=== PATIENT | female | born 1990 | race Caucasian/White ===

== ENCOUNTER 2019-09-21 19:56 | Emergency (ER) | payer OTHER, SELFPAY ==
--- NOTE | ~2019-09-21 | XR_ITS ---
EXAMINATION: XR chest 2V 09/21/2019 20:17 INDICATION: Left sided chest pain PROCEDURE: 2 view chest COMPARISON: No prior studies for comparison. FINDINGS: The lungs are clear. The cardiomediastinal silhouette is within normal limits. There are no pleural effusions. There is no pneumothorax suspected. IMPRESSION: 1: NO ACUTE CARDIOPULMONARY DISEASE. Reviewed, dictated and finalized at location A. ER REPAIR
--- NOTE | 2019-09-21 20:00 | ECG_ITS ---
Measurements Intervals [place] Rate: 79 P: -15 WI: 166 QRS: 22 QRSD: 96 T: 9 QT: 372 QTc: 428 Interpretive Statements SINUS RHYTHM WITH INTERMITTENT ECTOPIC ATRIAL RHYTHM INCOMPLETE RIGHT BUNDLE BRANCH BLOCK BORDERLINE ECG Electronically Signed On 09-22-2019 7:08:14 [employer]UCATION [employer] SALES REPRESENTATIVE by Manuel Rogers D.O.
[2019-09-21 20:03] VITALS: BP 143/89; PULSE 87; RESP 17; TEMP 37.4; O2SAT 100
[2019-09-21 20:19] LABS: Basophils Percent Auto 0.4 % (0.2-1.2); Eosinophils Absolute Auto 0.2 K/mm3 (0-0.3); Eosinophils Percent Auto 2.5 % (0-4.4); Hematocrit 41.4 % (37.0-47.0); Hemoglobin 13.2 g/dL (12.0-15.0); Immature Granulocyte Absolute 0.02 K/mm3 (0.00-0.031); Immature Granulocyte Percent A 0.2 % (0-0.5); Lymphocytes Percent Auto 25.7 % (18.3-44.2); Mean Corpuscular HGB Conc 31.9 g/dl (32-36); Mean Corpuscular Hemoglobin 27.6 pg (26-34); Mean Corpuscular Volume 86.4 fl (80-100); Monocytes Absolute Auto 0.6 K/mm3 (0.1-0.6); Monocytes Percent Auto 6.2 % (2.6-8.5); Neutrophils Absolute Auto 6.3 K/mm3 (1.3-6.7); Platelet Count Result 267 k/mm3 (150-375); Red Blood Count 4.79 M/mm3 (4.2-5.4); Red Cell Distribution Width 13.5 % (11.5-14.5); White Blood Count 9.7 K/mm3 (4.5-10.0)
[2019-09-21 20:34] LABS: Blood Urea Nitrogen 15 mg/dL (7-17); Calcium 9.5 mg/dL (8.4-10.2); Carbon Dioxide 25 mmol/L (22-30); Chloride 103 mmol/L (98-107); Estimated CRCL calculation 110 ml/min; Estimated Glomerular Filt Rate > 60; Glucose 102 mg/dL (65-105); Sodium 138 mmol/L (137-145)
[2019-09-21 20:36] VITALS: PULSE 85
--- NOTE | 2019-09-21 20:41 | ED.CHESTPAIN ---
HPI - Chest Pain General Chief Complaint: Chest Pain Stated Complaint: chest pain Time Seen by Provider: 09/21/19 20:36 Source: patient and RN notes reviewed Mode of arrival: ambulatory Limitations: no limitations History of Present Illness HPI narrative: A 28 y/o female presents to the ED with intermittent, sharp, lt CP for the past month. She states that she was seen by her PCP 2 weeks ago and had a CXR and EKG, both of which were normal. She reports that they told her that it was probably just inflammation, but since it hasn't gotten any better she decided to come to the ED to be evaluated. She notes some associated LUE tightness. She denies anything aggravating or alleviating her pain. She also denies any edema, calf tenderness, fevers, chills, sweats, SOB, N/V/D, ABD pain, and any other medical complaints at this time. MD complaint: chest pain Onset (ago): month(s) (1) Timing of current episode: episodic Pain location: left chest Quality: sharp Relieving factors: nothing Exacerbating factors: nothing Associated symptoms: other (LUE tightness) Related Data Allergies Allergy/AdvReac Type Severity Reaction Status Date / Time Penicillins Allergy Unknown Rash Verified 09/21/19 20:02 Review of Systems Review of Systems: All systems reviewed & are unremarkable except as noted in HPI and below Constitutional: Constitutional: Denies chills, Denies fatigue, Denies fever(s), Denies headache(s) and Denies night sweats Eyes: Eyes: Denies change in vision, Denies loss of vision and Denies other visual disturbances ENT: Denies headache(s), Denies hoarseness, Denies epistaxis, Denies nasal congestion and Denies sore throat Cardiovascular: Cardiovascular: Reports chest pain (lt), Denies leg edema, Denies palpitations and Denies dyspnea Respiratory: Respiratory: Denies cough, Denies dyspnea and Denies wheezing Gastrointestinal: Gastrointestinal: Denies abdominal pain, Denies diarrhea, Denies nausea, Denies vomiting and Denies other (calf tenderness) Genitourinary: Genitourinary: Denies hematuria, Denies urinary frequency and Denies dysuria Musculoskeletal: Musculoskeletal: Denies abnormal gait, Denies deformity, Denies joint swelling, Denies muscle weakness, Denies numbness and Reports other (LUE tightness) Integumentary/Breasts: Skin/Breast: Denies rash, Denies unusual bruising and Denies wounds Neurologic: Denies abnormal gait, Denies headache(s), Denies focal weakness, Denies loss of vision and Denies numbness Psychiatric: Psychiatric: Reports no additional psychiatric complaints Endocrine: Endocrine: Denies fatigue and Denies palpitations Hematologic/Lymphatic: Hematologic/Lymphatic: Denies easy bleeding and Denies easy bruising Allergic/Immunologic: Allergic/Immunologic: Denies wheezing PMFSH Past Medical History Medical History (Updated 09/22/19 @ 00:57 by Jag Abdi MD) Healthy female Surgical History Surgical History (Updated 09/21/19 @ 21:23 by Sergey Milner) Hx of eye surgery Family History Family History Mother Family history of obesity Hypertension Social History Social History Smoking status: Never smoker Alcohol intake: current Comments PCP: Dr. Chacon. Exam Const: General: healthy appearing, no acute distress and well developed Nutritional Appearance: well nourished Orientation/consciousness: patient oriented x3 (alert) and Other orientation findings (Alert) Limitations: no limitations HENMT: Head: normocephalic and atraumatic Ears: external ears normal General nose exam: No nasal discharge present and no epistaxis Face and sinus: face symmetric Mouth: Yes lip normal, Yes tongue normal and Yes moist mucous membranes Throat: other (No exudate, no erythema) Eyes: Conjunctivae: conjunctivae normal Sclera: sclerae normal EOM: EOMs intact bilaterally Neck: Neck: full ROM, no lymphadenopathy and
[2019-09-21 20:44] LABS: INR 0.9; Partial Thromboplastin Time 27.4 SECONDS (22.3-36.8); Prothrombin Time 12.2 Seconds (11.1-14.7)
[2019-09-21 20:46] VITALS: BP 132/59; PULSE 86; RESP 14; O2SAT 98
[2019-09-21 20:46] LABS: Troponin I < 0.012 ng/mL (0.000-0.034)
[2019-09-21 22:02] LABS: D Dimer 0.27 ug/mL (<0.48)
[2019-09-21 23:06] VITALS: BP 131/74; PULSE 76; RESP 18; O2SAT 99
[2019-09-21 23:30] LABS: Troponin I < 0.012 ng/mL (0.000-0.034)
[2019-09-22 00:34] VITALS: BP 106/61; PULSE 67; RESP 16; O2SAT 99
[2019-09-22 01:00] VITALS: BP 102/64; PULSE 70; RESP 18; TEMP 36.4; O2SAT 100
== END 2019-09-22 01:00 | disposition home or self-care (01) ==
PROVIDERS: Emergency Provider Emergency Medicine; PCP Family Medicine
DX: R07.89 Other chest pain (principal); I45.10 Unspecified right bundle-branch block
CPT/HCPCS: 36415; 71046; 80048; 84484; 85025; 85380; 85610; 85730; 93005; 99284

== ENCOUNTER 2022-11-09 08:56 | Emergency (ER) | payer OTHER, SELFPAY ==
[2022-11-09 09:15] VITALS: BP 131/81; PULSE 84; RESP 16; TEMP 36.8; O2SAT 99
--- NOTE | 2022-11-09 09:55 | ED.URI ---
HPI - URI/Sore Throat General Chief Complaint: Upper Respiratory Infection Stated Complaint: SORE THROAT/HEADACHE/DIARRHEA/STUFFY NOSE Time Seen by Provider: 11/09/22 09:56 Source: patient and RN notes reviewed Mode of arrival: ambulatory Limitations: no limitations History of Present Illness HPI Narrative: 32-year-old female presented for complaint of sore throat, nasal congestion and drainage over the last 4 days. Endorses voice is hoarse. She denies shortness of breath, wheezing, cough, nausea, vomiting, diarrhea, fevers or chills. She took 1 dose of Advil cold and Sinus yesterday. Denies sick contacts. MD elicited complaint: cough Related Data Home Medications Medication Instructions Recorded Confirmed No Home Medications 11/09/22 11/09/22 Allergies Allergy/AdvReac Type Severity Reaction Status Date / Time Penicillins Allergy Unknown Rash Verified 11/09/22 09:49 Review of Systems Review of Systems: CONSTITUTIONAL: Denies malaise, chills, sweats, fever EYES: Denies visual changes, redness, or discharge ENT: Reports rhinorrhea, congestion, sinus pain, sore throat CARDIOVASCULAR: Denies chest pain, palpitations, edema RESPIRATORY: Reports cough, post nasal drainage. Denies dyspnea GASTROINTESTINAL: Denies abdominal pain, nausea, vomiting, diarrhea SKIN: Denies rash or itching MUSCULOSKELETAL: Denies myalgia NEUROLOGIC: Denies headache PMFSH Past Medical History Medical History (Updated 11/09/22 @ 10:03 by Omaira Mcknight APRN) Healthy female No pertinent past medical history Surgical History Surgical History Hx of eye surgery Family History Family History Mother Family history of obesity Hypertension Social History Social History Smoking status: Never smoker Alcohol intake: current Exam Narrative: GENERAL: Mildly ill-appearing, nontoxic EYES: PERRLA, conjunctivae clear ENT: Mucous membranes moist. Nasal congestion. tMs pearly bernstein with dull light reflex bilaterally; no tragal tenderness. Oropharynx mildly erythematous without tonsillar swelling, lesions or exudate, no drooling, no trismus, uvula midline. No tripod positioning, muffled voice, soft palate or pharyngeal wall bulging NECK: Supple. No lymphadenopathy CHEST: Clear to auscultation, breath sounds equal. No wheezing, rhonchi, rales, or stridor. No respiratory distress, speaks in full sentences. HEART: Regular rate and rhythm. No murmur heard. SKIN: Warm, dry, no rash. NEURO: Alert and oriented x3. PSYCH: Normal mood and affect Course Course Emergency Course: Patient is aware of diagnosis, understands and agrees to treatment plan. Anticipatory guidance given. Patient agrees to follow-up as directed and is aware of reasons to seek care at the emergency department. Portions of this record may have been created with voice recognition software Level of Care: Express Care Visit Vital Signs Vital signs: Vital Signs Temperature 98.3 F 11/09/22 09:15 Pulse Rate 84 11/09/22 09:15 Respiratory Rate 16 11/09/22 09:15 Blood Pressure 131/81 11/09/22 09:15 Pulse Oximetry 99 11/09/22 09:15 Temperature 98.3 F 11/09/22 09:15 Pulse Rate 84 11/09/22 09:15 Respiratory Rate 16 11/09/22 09:15 Blood Pressure 131/81 11/09/22 09:15 Pulse Oximetry 99 11/09/22 09:15 reviewed MDM - URI/Sore Throat MDM Narrative Medical decision making narrative: Negative strep test reviewed with patient. Advised supportive measures and signs/symptoms to go to the ER. Pt is appropriate for outpt treatment and f/u. Differential Diagnosis Differential diagnosis: Likely upper respiratory infection, otitis media, sinusitis, viral infection, influenza and pharyngitis Lab Data Labs: Strep Screen Presumptive Negative
== END 2022-11-09 10:07 | disposition home or self-care (01) ==
PROVIDERS: Emergency Provider Nurse Practitioner Family
DX: J06.9 Acute upper respiratory infection, unspecified (principal)
CPT/HCPCS: 87081; 87880; 99203; G0463

== ENCOUNTER 2023-07-12 08:19 | Emergency (ER) | payer OTHER, SELFPAY ==
[2023-07-12 08:30] VITALS: BP 136/89; PULSE 73; RESP 16; TEMP 36.7; O2SAT 100
--- NOTE | 2023-07-12 08:42 | ED.FEMALEGU ---
HPI - Female Genitourinary General Chief complaint: Urogenital-Female Stated complaint: UTI SYMPTOMS Source: patient and RN notes reviewed Mode of arrival: ambulatory Limitations: no limitations History of Present Illness HPI Narrative: 32-year-old female presented for complaint of burning with urination and frequency over the past 4 days. Endorses occasional lower abdominal pressure and states she saw some blood in the urine this morning. She denies abdominal pain, flank pain, nausea, vomiting, diarrhea, fevers or chills. Related Data Home Medications Medication Instructions Recorded Confirmed levonorgestrel 21 mcg/24 hours (8 1 device intrauterine ONCE 07/12/23 07/12/23 yrs) 52 mg intrauterine device (Mirena) Allergies Allergy/AdvReac Type Severity Reaction Status Date / Time Penicillins Allergy Unknown Rash Verified 07/12/23 08:30 Review of Systems Review of Systems: CONSTITUTIONAL: Denies body aches, fever, chills, or sweats. CARDIOVASCULAR: Denies chest pain, palpitations, or edema. RESPIRATORY: Denies cough or dyspnea. GASTROINTESTINAL: Denies abdominal pain, nausea, vomiting, or diarrhea. GENITOURINARY: Reports dysuria, frequency, urgency, hematuria, denies flank pain SKIN: Denies rash, itching, or wounds. MUSCULOSKELETAL: Denies back pain or myalgia. [facility] Past Medical History Medical History Healthy female No pertinent past medical history Surgical History Surgical History Hx of eye surgery Family History Family History Mother Family history of obesity Hypertension Social History Social History Smoking status: Never smoker Alcohol intake: current Comments At time of signature, I have reviewed and agree with nursing past medical, surgical, social and family history unless otherwise noted. Please see nursing chart for further information. There is no relevant family history pertinent to the presenting complaint Exam Narrative: GENERAL: Well-appearing and in no acute distress. ENT: Mucous membranes pink and moist. NECK: Normal AROM. Supple. CHEST: No respiratory distress. Clear to auscultation. HEART: Regular rate and rhythm. ABDOMEN: Soft, nontender, nondistended, normal active bowel sounds. No CVA tenderness MUSCULOSKELETAL: No bony tenderness. SKIN: Warm, dry, no rash. NEURO: No focal deficits. Alert and oriented x3. Gait steady. PSYCH: Normal affect. Course Course Emergency Course: Patient is aware of diagnosis, understands and agrees to treatment plan. Anticipatory guidance given. Patient agrees to follow-up as directed and is aware of reasons to seek care at the emergency department. Portions of this record may have been created with voice recognition software Level of Care: Express Care Visit Vital Signs Vital signs: Vital Signs Temperature 98.1 F 07/12/23 08:30 Pulse Rate 73 07/12/23 08:30 Respiratory Rate 16 07/12/23 08:30 Blood Pressure 136/89 07/12/23 08:30 Pulse Oximetry 100 07/12/23 08:30 Temperature 98.1 F 07/12/23 08:30 Pulse Rate 73 07/12/23 08:30 Respiratory Rate 16 07/12/23 08:30 Blood Pressure 136/89 07/12/23 08:30 Pulse Oximetry 100 07/12/23 08:30 Reviewed MDM - Female Genitourinary MDM Narrative Medical decision making narrative: Discussed results of urine. Advised supportive measures and signs/symptoms to go to the ER. Pt is appropriate for outpt treatment and f/u. Differential Diagnosis Differential diagnosis: Likely urinary tract infection, bacterial vaginosis and cystitis Lab Data Labs: Urine Glucose Negative Reference Range: Negative Urine Bilirubin Negative
== END 2023-07-12 08:52 | disposition home or self-care (01) ==
PROVIDERS: Emergency Provider Nurse Practitioner Family
DX: N39.0 Urinary tract infection, site not specified (principal); B95.7 Other staphylococcus as the cause of diseases classified elsewhere
CPT/HCPCS: 81003; 87077; 87086; 87088; 99213; G0463

== ENCOUNTER 2023-07-21 09:47 | Emergency (ER) | payer OTHER, SELFPAY ==
[2023-07-21 10:10] VITALS: BP 130/83; PULSE 63; RESP 16; TEMP 36.8; O2SAT 99
--- NOTE | 2023-07-21 10:44 | ED.URI ---
HPI - URI/Sore Throat General Chief Complaint: Upper Respiratory Infection Stated Complaint: Strep symptoms Time Seen by Provider: 07/21/23 10:40 Source: patient, RN notes reviewed and old records reviewed Mode of arrival: ambulatory Limitations: no limitations History of Present Illness HPI Narrative: 32-year-old female presents to [facility] complaints of sore throat for the past 2 days with no known fevers. Patient reports that she has some burning pain to her throat rates pain 3/10. Patient denies any cough, ear pain or any headache. Patient reports no known ill contacts. MD elicited complaint: cough and sore throat Onset (ago): day(s) (2) Pain scale (0-10): 3 Treatments prior to arrival: acetaminophen Related Data Home Medications Medication Instructions Recorded Confirmed levonorgestrel 21 mcg/24 hours (8 1 device intrauterine ONCE 07/12/23 07/12/23 yrs) 52 mg intrauterine device (Mirena) Allergies Allergy/AdvReac Type Severity Reaction Status Date / Time Penicillins Allergy Unknown Rash Verified 07/12/23 08:30 Review of Systems Review of Systems: CONSTITUTIONAL: Denies malaise, chills, sweats, or fever. EYES: Denies visual changes, redness, or discharge. ENT: Reports rhinorrhea, congestion, no sinus pain, no otalgia andpositive for sore throat. CARDIOVASCULAR: Denies chest pain, palpitations, or edema. RESPIRATORY: Reports no cough.? Denies dyspnea. GASTROINTESTINAL: Denies abdominal pain, nausea, vomiting, diarrhea SKIN: Denies rash or itching. MUSCULOSKELETAL: Denies myalgia. NEUROLOGIC: Denies headache. All systems reviewed & are unremarkable except as noted in HPI and below PMFSH Past Medical History Medical History Healthy female No pertinent past medical history Surgical History Surgical History Hx of eye surgery Family History Family History Mother Family history of obesity Hypertension Social History Social History Smoking status: Never smoker Alcohol intake: current Comments At time of signature, agree with nursing past medical, surgical, social and family history. There is no relevant family history pertinent to the presenting complaint Exam Narrative: GENERAL: Well-appearing, well-nourished, and in no acute distress. HEAD: Normocephalic EYES: PERRLA, conjunctivae clear ENT: Nares clear, turbinates edematous and erythematous, clear discharge. Mucous membranes moist. TM pearly bernstein with dull light reflex bilaterally; no tragal tenderness. Oropharynx erythematous without lesions. Tonsils enlarged and with white exudate, no drooling, no hoarseness, no trismus, uvula midline.post nasal drainage noted NECK: Supple. lymphadenopathy CHEST: Clear to auscultation, breath sounds equal. No wheezing, rhonchi, rales, or stridor. No respiratory distress, speaks in full sentences.SAO2 99% on room air HEART: Regular rate and rhythm. No murmur heard. SKIN: Warm, dry, no rash. NEURO: Alert and oriented x3. PSYCH: Normal mood and affect Course Course Emergency Course: Patient is aware of diagnosis, understands and agrees to treatment plan.? Anticipatory guidance given.? Patient agrees to follow-up as directed and is aware of reasons to seek care at the emergency department. Portions of this record may have been created with voice recognition software Level of Care: Express Care Visit Vital Signs Vital signs: Vital Signs Temperature 36.8 C 07/21/23 10:10 Pulse Rate 63 07/21/23 10:10 Respiratory Rate 16 07/21/23 10:10 Blood Pressure 130/83 07/21/23 10:10 Pulse Oximetry 99 07/21/23 10:10 Temperature 36.8 C 07/21/23 10:10 Pulse Rate 63 07/21/23 10:10 Respiratory Rate 16 07/21/23 10:10 Blood
== END 2023-07-21 11:04 | disposition home or self-care (01) ==
PROVIDERS: Emergency Provider Registered Nurse
DX: J03.90 Acute tonsillitis, unspecified (principal)
CPT/HCPCS: 87081; 87880; 99213; G0463

== ENCOUNTER 2023-12-21 18:39 | Emergency (ER) | payer OTHER, SELFPAY ==
--- NOTE | 2023-12-21 18:42 | ED.GENADULT ---
HPI - General Adult General Chief complaint: Upper Respiratory Infection Stated complaint: Sore Throat Time Seen by Provider: 12/21/23 18:42 Source: patient Mode of arrival: ambulatory Limitations: no limitations History of Present Illness HPI narrative: 33-year-old female patient presents to [facility] with complaints of sore throat this started yesterday evening. Patient states she has been feeling kind of achy did take some Tylenol yesterday and today. Patient states her son had strep throat earlier in the month. Patient states she has had a little bit of a headache denies any nausea, vomiting or diarrhea. Denies any fevers that she is aware of. Related Data Home Medications Medication Instructions Recorded Confirmed levonorgestrel 21 mcg/24 hours (8 1 device intrauterine ONCE 07/12/23 07/12/23 yrs) 52 mg intrauterine device (Mirena) Allergies Allergy/AdvReac Type Severity Reaction Status Date / Time Penicillins Allergy Unknown Rash Verified 07/12/23 08:30 Review of Systems Review of Systems: CONSTITUTIONAL: Denies fever, chills, or sweats. positive body aches EYES: Denies visual changes, redness, or discharge. ENT: Denies rhinorrhea, congestion, Positive sore throat, or otalgia. CARDIOVASCULAR: Denies chest pain, palpitations, or edema. RESPIRATORY: Denies cough or dyspnea. GASTROINTESTINAL: Denies abdominal pain, nausea, vomiting, or diarrhea. GENITOURINARY: Denies dysuria or hematuria. SKIN: Denies rash or itching. MUSCULOSKELETAL: Denies back pain, joint pain, or myalgia. NEUROLOGIC: positive headache, denies numbness, or weakness. PSYCHIATRIC: Denies anxiety or depression. [facility] Past Medical History Medical History Healthy female No pertinent past medical history Surgical History Surgical History Hx of eye surgery Family History Family History Mother Family history of obesity Hypertension Social History Social History Smoking status: Never smoker Alcohol intake: current Comments At the time of my signature I agree with nursing past medical history, surgical, social, and family history. There is no relevant family history pertinent to the presenting complaint. Exam Narrative: GENERAL: Well-appearing, well-nourished, and in no acute distress. HEAD: Normocephalic, atraumatic. EYES: PERRLA and EOMI. ENT: Nares clear, no rhinorrhea or epistaxis. Mucous membranes moist. posterior pharynx with no erythema, tonsillar enlargement, exudates or lesions present. Bilateral TMs are clear no erythema or foreign bodies the canal. NECK: Supple. No lymphadenopathy CHEST: Clear to auscultation. No respiratory distress. HEART: Regular rate and rhythm. No murmur heard. Normal peripheral pulses. ABDOMEN: Soft, nontender, nondistended, normal active bowel sounds. EXTREMITIES: Normal range of motion. No edema. SKIN: Warm, dry, no rash. NEURO: No focal deficits. Alert and oriented x3. Course Course Level of Care: Express Care Visit Reevaluation(s) Reevaluation #1: Re-evaluated patient after point of care testing was completed notified her that all point of care testing was negative today. Discussed with her to continue to treat with [id number] medication and we will sign her throat swab to the lab for culture. If the culture comes back positive we will call her an antibiotic at th Date: 12/21/23 Time: 19:10 Vital Signs Vital signs: Vital Signs Temperature 37.3 C 12/21/23 18:46 Pulse Rate 88 12/21/23 18:46 Respiratory Rate 16 12/21/23 18:46 Blood Pressure 114/75 12/21/23 18:46 Pulse Oximetry 99 12/21/23 18:46 Temperature 37.3 C 12/21/23 18:46 Pulse Rate 88 12/21/23 18:46 Respiratory Rate 16 12/21/23 18:46 Blood Pressure
[2023-12-21 18:46] VITALS: BP 114/75; PULSE 88; RESP 16; TEMP 37.3; O2SAT 99
== END 2023-12-21 19:11 | disposition home or self-care (01) ==
PROVIDERS: Emergency Provider Nurse Practitioner Family
DX: J02.9 Acute pharyngitis, unspecified (principal); Z20.822 Contact with and (suspected) exposure to COVID-19
CPT/HCPCS: 87081; 87426; 87804; 87880; 99213; G0463

== ENCOUNTER 2025-04-08 12:58 | Emergency (ER) | payer BC, SELFPAY ==
--- OUTSIDE RECORDS SUMMARY | 2025-04-08 13:01 | XMS_ITS | Clinical Summary ---
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 Gender Identity Not on file Sexual Orientation Not on file Plan of Treatment Health Maintenance Due Date Last Done Comments Hepatitis C Virus (HCV) Screening 1989 Hepatitis B Immunization (1 of 3 - 19+ 3-dose series) 2008 Pap Smear 2010 Human Papillomavirus (HPV) Immunization (1 - 3-dose SCDM series) 2016 Cervical Cancer Screening (CCS) 2019 HPV/Cotest 2019 SARS-COV-2 Immunization ( - 2023- season) 2024 04/09/2021, 03/19/2021 Influenza Immunization (#1) 2025 Respiratory Syncytial Virus (RSV) Immunization (Adult) (1 - 1-dose 75+ series) 2064 DTaP/Tdap/Td Immunization Discontinued 12/16/2015 TdaP Immunization Completed 12/16/2015 Meningococcal Immunization (ACWY) Aged Out No longer eligible based on patient's age to complete this topic Pneumococcal Immunization Combined Aged Out No longer eligible based on patient's age to complete this topic Rotavirus Immunization Aged Out No lo nger eligible based on patient's age to complete this topic
--- NOTE | 2025-04-08 13:04 | ED_ITS ---
HPI - Female Genitourinary General Chief complaint: Urogenital-Female Stated complaint: uti Time Seen by Provider: 04/08/25 13:07 Source: patient and RN notes reviewed Mode of arrival: ambulatory Limitations: no limitations History of Present Illness HPI Narrative: 34 y/o female presented for c/o burning with urination and frequency. Onset yesterday. Denies hematuria, nausea, vomiting, abdominal pain, flank pain, constipation, diarrhea, fevers or chills. not taking anything for symptoms. Related Data Home Medications ?Medication ?Instructions ?Recorded ?Confirmed ?Last Taken ?Type levonorgestrel (Mirena) 1 device intrauterine ONCE 07/12/23 07/12/23 Unknown History Allergies Allergy/AdvReac Type Severity Reaction Status Date / Time Penicillins Allergy Unknown Rash Verified 07/12/23 08:30 Review of Systems Review of Systems: CONSTITUTIONAL: Denies body aches, fever, chills, or sweats. CARDIOVASCULAR: Denies chest pain, palpitations, or edema. RESPIRATORY: Denies cough or dyspnea. GASTROINTESTINAL: Denies abdominal pain, nausea, vomiting, or diarrhea. GENITOURINARY: Reports dysuria, frequency,denies urgency, hematuria, flank pain, discharge SKIN: Denies rash, itching, or wounds. MUSCULOSKELETAL: Denies back pain or myalgia. FORMERLY [facility], [facility]–1983 Past Medical History Medical History Healthy female No pertinent past medical history Surgical History Surgical History Hx of eye surgery Family History Family History Mother Family history of obesity Hypertension Social History Social History Smoking status: Never smoker Alcohol intake: current Comments At time of signature, I have reviewed and agree with nursing past medical, surgical, social and family history unless otherwise noted. Please see nursing chart for further information. There is no relevant family history pertinent to the presenting complaint Exam Narrative: GENERAL: Well-appearing and in no acute distress. ENT: Mucous membranes pink and moist. NECK: Normal AROM. Supple. CHEST: No respiratory distress. Clear to auscultation. HEART: Regular rate and rhythm. ABDOMEN: Soft, nontender, nondistended, normal active bowel sounds. No CVA tenderness SKIN: Warm, dry, no rash. NEURO: No focal deficits. Alert and oriented x3. Gait steady. PSYCH: Normal affect. Course Course Emergency Course: Patient is aware of diagnosis, understands and agrees to treatment plan. Anticipatory guidance given. Patient agrees to follow-up as directed and is aware of reasons to seek care at the emergency department. Portions of this record may have been created with voice recognition software Level of Care: Express Care Visit Vital Signs Vital signs: Vital Signs Temperature 98.8 F 04/08/25 13:13 Pulse Rate 85 04/08/25 13:13 Respiratory Rate 14 04/08/25 13:13 Blood Pressure 148/83 H 04/08/25 13:13 Pulse Oximetry 100 04/08/25 13:13 Oxygen Delivery Room Air 04/08/25 13:13 Temperature 98.8 F 04/08/25 13:13 Pulse Rate 85 04/08/25 13:13 Respiratory Rate 14 04/08/25 13:13 Blood Pressure 148/83 H 04/08/25 13:13 Pulse Oximetry 100 04/08/25 13:13 Oxygen Delivery Room Air 04/08/25 13:13 Reviewed MDM - Female Genitourinary MDM Narrative Medical decision making narrative: Discussed physical exam findings and urine dip, will culture. Advised supportive measures and signs/symptoms to go to the ER. Pt is appropriate for outpt treatment and f/u. Differential Diagnosis Differential diagnosis: Likely urinary tract infection, vaginitis and cystitis Lab Data Labs: Lab Results 04/08/25 Range/Units 13:14 POC Urine Color Yellow POC Urine Clarity Cloudy POC Urine pH 7.5 POC Ur Specif Berkley 1.010 POC Urine Protein Negative (Negative) POC Ur Glucose (UA) Negative (Negative) POC Urine Ketones Trace (Negative) POC Urine Blood 1+ (Negative) POC Urine Nitrite Negative (Negative) POC Urine Bilirubin Negative (Negative) POC Urine Urobilinogen 0.2 POC U Leukocyte Esteras 1+ (Negative) Discharge Plan Discharge Clinical Impression: Urinary tract infection Patient Disposition: Home Condition: Stable Instructions: Antibiotic Form, Urinary Tract Infection in Women (ED) Additional Instructions: Take the antibiotic as prescribed The urine will be sent of for a culture to identify what type of bacteria is causing your infection. If the culture shows that the antibiotic will not get rid of your infection, you will be notified and a new antibiotic will be called in for you. Increase water intake you will need to follow up with your PCP, call to schedule an appointment. Go to the ER for any worsening symptoms or concerns Patient Language: Tamaz[place] Prescriptions: New sulfamethoxazole-trimethoprim [Bactrim DS] 800-160 mg tablet 1 tablet PO Q12H 5 Days Qty: 10 0RF No Action azithromycin 250 mg tablet See Rx Instructions .ROUTE .COMPLEX Qty: 6 0RF Rx Instructions: For 250 mg dose pack: take 500 mg today (day 1), then 250 mg for 4 days (days 2-5) Mirena 21 mcg/24 hours (8 yrs) 52 mg Intrauterine Device 1 device INTRAUTERINE ONCE nitrofurantoin monohyd/m-cryst [Macrobid] 100 mg capsule 100 mg PO Q12H 5 Days Qty: 10 0RF Rx Instructions: must administer with a meal/food Follow-up/Referrals: Samuel,LAYLA James [Primary Care Provider] - Time of Disposition: 13:23
[2025-04-08 13:13] VITALS: BP 148/83; PULSE 85; RESP 14; TEMP 37.1; O2SAT 100
[2025-04-08 13:16] LABS: EDUAAPPEAR Cloudy; EDUABILI Negative (Negative); EDUABLOOD 1+ (Negative); EDUACOLOR1 Yellow; EDUAGLUCOSE Negative (Negative); EDUAKETONE Trace (Negative); EDUALEUKO 1+ (Negative); EDUANITRATE Negative (Negative); EDUAPH 7.5; EDUAPROTEIN Negative (Negative); EDUASPGRAVITY 1.010; EDUAUROBILI 0.2
== END 2025-04-08 13:31 | disposition home or self-care (01) ==
PROVIDERS: Emergency Provider Nurse Practitioner Family; PCP Physician Assistant
DX: N39.0 Urinary tract infection, site not specified (principal)
CPT/HCPCS: 81003; 87086; 99213; G0463